=== PATIENT | male | born 1990 | race Caucasian/White ===

== ENCOUNTER 2018-04-03 13:07 | Emergency (ER) | payer SELFPAY ==
--- NOTE | 2018-04-03 13:23 | ER Document Report ---
ED Psych Disorder / Suicide <WILMAR OCAMPO - Last Filed: 04/03/18 15:16> - General Mode of Arrival: Ambulatory Information source: Patient - HPI Patient complains to provider of: Hallucinating Onset: Just prior to arrival Quality of pain: No pain Severity: None Pain Level: Denies Situational problems related to: Work Normal mood: Yes Associated symptoms: Normal affect Similar symptoms previously: No Recently seen / treated by doctor: No <ION CARRILLO - Last Filed: 04/03/18 16:39> - General Chief Complaint: Psych Problem Stated Complaint: PSYCH EVAL Time Seen by Provider: 04/03/18 13:21 Notes: Patient is having visual hallucinations. (ION CARRILLO) - Related Data Allergies/Adverse Reactions: hydrocodone [Hydrocodone] Allergy (Verified 04/03/18 14:00) Past Medical History - Social History Smoking Status: Unknown if Ever Smoked Family History: Reviewed & Not Pertinent Psychiatric Medical History: Reports: Hx Depression - anxiety Past Surgical History: Reports: Hx Rectal Surgery - anal fissure - Immunizations Hx Diphtheria, Pertussis, Tetanus Vaccination: No <ION CARRILLO - Last Filed: 04/03/18 16:39> Review of Systems - Review of Systems Constitutional: No symptoms reported EENT: No symptoms reported Cardiovascular: No symptoms reported Respiratory: No symptoms reported Gastrointestinal: No symptoms reported Genitourinary: No symptoms reported Male Genitourinary: No symptoms reported Musculoskeletal: No symptoms reported Skin: No symptoms reported Hematologic/Lymphatic: No symptoms reported Neurological/Psychological: Hallucinations. denies: Confusion, Homicidal ideation, Suicidal ideation -: Yes All other systems reviewed and negative <ION CARRILLO - Last Filed: 04/03/18 16:39> Physical Exam - General General appearance: Appears well, Alert In distress: None - HEENT Head: Normocephalic, Atraumatic Eyes: Normal Pupils: PERRL - Respiratory Respiratory status: No respiratory distress Chest status: Nontender Breath sounds: Normal Chest palpation: Normal - Cardiovascular Rhythm: Regular Heart sounds: Normal auscultation Murmur: No - Abdominal Inspection: Normal Distension: No distension Bowel sounds: Normal Tenderness: Nontender Organomegaly: No organomegaly - Back Back: Normal, Nontender - Extremities General upper extremity: Normal inspection, Nontender, Normal color, Normal ROM , Normal temperature General lower extremity: Normal inspection, Nontender, Normal color, Normal ROM , Normal temperature, Normal weight bearing. No: Delfino's sign - Neurological Neuro grossly intact: Yes Cognition: Normal Orientation: AAOx4 Gladis Coma Scale Eye Opening: Spontaneous Gladis Coma Scale Verbal: Oriented Gladis Coma Scale Motor: Obeys Commands Gladis Coma Scale Total: 15 Speech: Normal Motor strength normal: LUE, RUE, LLE, RLE Sensory: Normal - Psychological Associated symptoms: Normal affect, Normal mood - Skin Skin Temperature: Warm Skin Moisture: Dry Skin Color: Normal <ION CARRILLO - Last Filed: 04/03/18 16:39> - Vital signs Vitals: Temp Pulse Resp BP Pulse Ox 99.7 F 107 H 20 131/91 H 94 04/03/18 13:54 04/03/18 13:54 04/03/18 13:54 04/03/18 13:54 04/03/18 13:54 Course - Laboratory Result Diagrams: 04/03/18 13:26 04/03/18 13:26 <WILMAR OCAMPO - Last Filed: 04/03/18 15:16> - Laboratory Result Diagrams: 04/03/18 13:26 04/03/18 13:26 - EKG Interpretation by Me EKG shows normal: Sinus rhythm Rate: Tachycardia - 108 When compared to previous EKG there are: Previous EKG unavailable <ION CARRILLO - Last Filed: 04/03/18 16:39> - Vital Signs Vital signs: Temp Pulse Resp BP Pulse Ox 99.7 F 107 H 20 131/91 H 94 04/03/18 13:54 04/03/18 13:54 04/03/18 13:54 04/03/18 13:54 04/03/18 13:54 - Laboratory Laboratory results interpreted by me: 04/03/18 04/03/18 13:26 15:17 Calcium 10.6 H Urine Ketones 20 H Ur Leukocyte Esterase TRACE H Salicylates < 1.0 L Acetaminophen < 10 L - EKG Interpretation by Me Additional EKG results interpreted by me: 04/03/18 13:53 No STEMI (ION CARRILLO) - Transfer of Care Notes: 04/03/18 16:37 Patient was evaluated in the ED by the mental health machine adjuster leader case trim. She provided patient with psychiatric resources and recommend discharging patient home. ( ION CARRILLO) Discharge <WILMAR OCAMPO - Last Filed: 04/03/18 15:16> <ION CARRILLO - Last Filed: 04/03/18 16:39> - Discharge Clinical Impression: Amphetamine abuse, episodic, Visual hallucination Condition: Stable Disposition: HOME, SELF-CARE Instructions: Hallucinations ([facility]) Additional Instructions: You were seen in the ED and evaluated by the Medical and Behavioral Health Teams for visual hallucinations and determined to be appropriate for discharge at this time. You were given a community resource list, to include outpatient providers to assist you upon discharge. Also discussed appropriate coping skills. Hallucinations You seem to be having hallucinations. Hallucinations are seeing, hearing, or feeling things that don't exist. These symptoms commonly occur with drug abuse and schizophrenia. Drugs like PCP, LSD, MDMA, peyote, and "psychedelic mushrooms" can cause frightening hallucinations. Users of methamphetamine or crack cocaine often see and feel bugs crawling on their skin. Patients with schizophrenia may hear voices that no one else can hear. The delusions of schizophrenia often involve conspiracies or relationships that are not real. When symptoms are due to drug abuse, the mental state usually improves as the drug wears off. Someone you trust should be with you until you are better, to protect you and calm your fears. Tranquilizer medicine is helpful at controlling hallucinations, anxiety, and deluded thoughts. Get a proper diet and enough sleep. Most patients do very well when they get proper medical treatment and social support. You should return at once if your symptoms get worse, if you are having suicidal thoughts or thoughts about hurting others, or if you feel that you are in danger. Forms: Return to Work Referrals: LOCAL,NO [NO LOCAL MD] - Follow up as needed
[2018-04-03 13:38] LABS: ABSOLUTE BASOPHILS # (AUTO) 0.1 10^3/uL (0.0-0.2); ABSOLUTE EOSINOPHILS # (AUTO) 0.2 10^3/uL (0.0-0.6); ABSOLUTE LYMPHOCYTES (AUTO) 2.4 10^3/uL (0.5-4.7); ABSOLUTE MONOCYTES (AUTO) 1.1 10^3/uL (0.1-1.4); BASOPHILS % (AUTO) 1.1 % (0-2); EOSINOPHILS % (AUTO) 2.5 % (0-6); HEMATOCRIT 43.5 % (37.9-51.0); LYMPHOCYTES % (AUTO) 24.3 % (13-45); MEAN CORPUSCULAR HEMOGLOBIN 30.6 pg (27.0-33.4); MEAN CORPUSCULAR HGB CONC 34.6 g/dL (32.0-36.0); MEAN CORPUSCULAR VOLUME 89 fl (80-97); MONOCYTES % (AUTO) 11.4 % (3-13); PLATELET COUNT 215 10^3/uL (150-450); RED BLOOD COUNT 4.91 10^6/uL (4.35-5.55); RED CELL DISTRIBUTION WIDTH 13.2 % (11.5-14.0); SEGMENTED NEUTROPHILS % (AUTO) 60.7 % (42-78); TOTAL CELLS COUNTED % (AUTO) 100 %; WHITE BLOOD COUNT 9.8 10^3/uL (4.0-10.5)
[2018-04-03 13:58] LABS: ACETAMINOPHEN < 10 ug/mL (10-30); ALANINE AMINOTRANSFERASE 41 U/L (21-72); ALBUMIN 4.9 g/dL (3.5-5.0); ALCOHOL < 10 mg/dL (NONE DETECTED); ALKALINE PHOSPHATASE 45 U/L (38-126); ANION GAP 14 (5-19); ASPARTATE AMINO TRANSFERASE 44 U/L (17-59); BILIRUBIN,DIRECT 0.3 mg/dL (0.0-0.4); BILIRUBIN,TOTAL 1.3 mg/dL (0.2-1.3); BLOOD UREA NITROGEN 19 mg/dL (7-20); CALCIUM 10.6 mg/dL (8.4-10.2); CARBON DIOXIDE 22 mmol/L (22-30); CHLORIDE 104 mmol/L (98-107); GLUCOSE 108 mg/dL (75-110); POTASSIUM 4.1 mmol/L (3.6-5.0); SALICYLATE < 1.0 mg/dL (2.0-20.0); SODIUM 139.8 mmol/L (137-145); TOTAL PROTEIN 7.9 g/dL (6.3-8.2)
[2018-04-03 15:48] LABS: APPEARANCE,URINE SLIGHTLY-CLOUDY; BILIRUBIN,URINE NEGATIVE (NEGATIVE); COLOR,URINE YELLOW; GLUCOSE, URINE NEGATIVE (NEGATIVE); KETONES,URINE 20 mg/dL (NEGATIVE); LEUKOCYTE ESTERASE,URINE TRACE (NEGATIVE); NITRITE,URINE NEGATIVE (NEGATIVE); PROTEIN,URINE NEGATIVE (NEGATIVE); URINE SPECIFIC GRAVITY 1.014; UROBILINOGEN,URINE NEGATIVE mg/dL (<2.0)
[2018-04-03 16:05] LABS: URINE BARBITURATES SCREEN NEGATIVE; URINE BENZODIAZEPINES SCREEN NEGATIVE; URINE COCAINE SCREEN NEGATIVE; URINE MARIJUANA (THC) SCREEN NEGATIVE; URINE METHADONE SCREEN NEGATIVE; URINE PHENCYCLIDINE SCREEN NEGATIVE
[2018-04-03 16:39] VITALS: BP 121/64
--- NOTE | 2018-04-03 19:48 | EKG REPORT ---
SEVERITY:- OTHERWISE NORMAL ECG - SINUS TACHYCARDIA : Confirmed by: Leti Dallas MD 03-Apr-2018 19:47:23
== END 2018-04-03 16:38 | disposition home or self-care (01) ==
LOC: ER 13:07
DX: F19.10 Other psychoactive substance abuse, uncomplicated (principal); R44.1 Visual hallucinations
CPT/HCPCS: 36415; 80053; 80307; 81001; 84443; 85025; 93005; 93010; 99284

== ENCOUNTER 2018-11-21 20:45 | Emergency (ER) | payer BC ==
[2018-11-22] MEDS ORDERED: IBUPROFEN 800 MG TABLET PO ONE (00:24)
--- NOTE | 2018-11-22 00:24 | ER Document Report ---
ED Medical Screen (RME) - General Chief Complaint: Toothache Stated Complaint: TOOTH ACHE Time Seen by Provider: 11/22/18 00:23 Mode of Arrival: Ambulatory Information source: Patient Notes: 28-year-old male presented to ED for dental pain to tooth #3. He states is been hurting for several weeks. He states that the pain is now to the point that he cannot eat or sleep. He states he usually smokes pack a day but he cannot smoke due to the pain in his tooth. He is alert oriented respirations regular and unlabored speaking in full sentences. Patient states he needs something for his pain until he can get seen by a dentist. I have greeted and performed a rapid initial assessment of this patient. A comprehensive ED assessment and evaluation of the patient, analysis of test results and completion of medical decision making process will be conducted by an additional ED providers. Dictation of this chart was performed using voice recognition software; therefore, there may be some unintended grammatical errors. TRAVEL OUTSIDE OF THE [place] IN LAST 30 DAYS: No - Related Data Allergies/Adverse Reactions: hydrocodone [Hydrocodone] Allergy (Verified 04/03/18 14:00) Past Medical History Renal/ Medical History: Denies: Hx Peritoneal Dialysis Psychiatric Medical History: Reports: Hx Depression - anxiety Past Surgical History: Reports: Hx Rectal Surgery - anal fissure - Immunizations Hx Diphtheria, Pertussis, Tetanus Vaccination: No Physical Exam - Vital signs Vitals: Temp Pulse Resp BP Pulse Ox 97 F L 92 24 H 160/98 H 100 11/21/18 21:20 11/21/18 21:20 11/21/18 21:20 11/21/18 21:20 11/21/18 21:20 Course - Vital Signs Vital signs: Temp Pulse Resp BP Pulse Ox 97 F L 92 24 H 160/98 H 100 11/21/18 21:20 11/21/18 21:20 11/21/18 21:20 11/21/18 21:20 11/21/18 21:20
[2018-11-22] MEDS ORDERED: OXYCODONE-ACETAMINOPHEN 5-325 MG TABLET PO ONE (01:06)
[2018-11-22] MEDS ORDERED: PENICILLIN V POTASSIUM 500 MG TABLET PO ONE (01:06)
--- NOTE | 2018-11-22 01:12 | ER Document Report ---
ED General - General Chief Complaint: Toothache Stated Complaint: TOOTH ACHE Time Seen by Provider: 11/22/18 00:23 Mode of Arrival: Ambulatory TRAVEL OUTSIDE OF THE [place] IN LAST 30 DAYS: No - HPI Notes: Patient is a 28-year-old male that presents to the emergency department for chief complaint of dental pain. Patient states he bit into a hamburger 4 days ago and chipped his right maxillary posterior molar. He has had pain over the site since. He denied any facial swelling. He states the pain is sharp and constant. He does get some relief with cold water and cold compress. Patient has not taken any Tylenol or ibuprofen today. He denies history of dental issues in the past. Past Medical History: Negative Past Surgical History: Negative Social History: Daily tobacco. Denies drug and alcohol use Family History: Reviewed and noncontributory for presenting illness Allergies: Reviewed, see documented allergy list. REVIEW OF SYSTEMS: CONSTITUTIONAL : No fever No chills No diaphoresis No recent illness EENT: No vision changes No congestion No sore throat Dental pain CARDIOVASCULAR: No chest pain No palpitations RESPIRATORY: No shortness of breath No cough No difficulty breathing GASTROINTESTINAL: No abdominal pain No nausea No vomiting No diarrhea GENITOURINARY: No dysuria No hematuria No difficulty urinating MUSCULOSKELETAL: No back pain No leg pain No arm pain SKIN: No rashes No lesions LYMPHATIC: No swollen, enlarged glands. NEUROLOGICAL: No lightheadedness No headache No weakness No paresthesias PSYCHIATRIC: No anxiety No depression PHYSICAL EXAMINATION: Vital signs reviewed, nursing noted reviewed. GENERAL: Well-appearing, well-nourished and in no acute distress. HEAD: Atraumatic, normocephalic. EYES: Eyes appear normal, extraocular movements intact, sclera anicteric, conjunctiva are normal. ENT: No facial bone tenderness, decay and tenderness to percussion of posterior right maxillary molar with exposed dentin but no pulp exposed, mild gingival erythema, nares patent, oropharynx clear without exudates. Moist mucous membranes. NECK: Normal range of motion, supple without lymphadenopathy LUNGS: Breath sounds clear to auscultation bilaterally and equal. No wheezes rales or rhonchi. HEART: Regular rate and rhythm without murmurs ABDOMEN: Soft, nontender, normoactive bowel sounds. No rebound, guarding, or rigidity. No masses appreciated. EXTREMITIES: Nontender, good range of motion, no pitting or edema. NEUROLOGICAL: No focal neurological deficits. Moves all extremities spontaneously Motor and sensory grossly intact on exam. PSYCH: Normal mood, normal affect. SKIN: Warm, Dry, normal turgor, no rashes or lesions noted on exposed skin - Related Data Allergies/Adverse Reactions: hydrocodone [Hydrocodone] Allergy (Verified 04/03/18 14:00) Past Medical History - General Information source: Patient - Social History Smoking Status: Current Every Day Smoker Family History: Reviewed & Not Pertinent Renal/ Medical History: Denies: Hx Peritoneal Dialysis Psychiatric Medical History: Reports: Hx Depression - anxiety Past Surgical History: Reports: Hx Rectal Surgery - anal fissure - Immunizations Hx Diphtheria, Pertussis, Tetanus Vaccination: No Physical Exam - Vital signs Vitals: Temp Pulse Resp BP Pulse Ox 97 F L 92 24 H 160/98 H 100 11/21/18 21:20 11/21/18 21:20 11/21/18 21:20 11/21/18 21:20 11/21/18 21:20 Course - Re-evaluation Re-evalutation: 11/22/18 01:11 Vitals reviewed. Nursing notes reviewed. Patient has a class II fracture of his right posterior maxillary molar. He was given Motrin and Percocet for pain control. Patient has some mild gingival erythema and was started on penicillin VK. He has an appointment in 1 day with a dentist for dental repair or extraction. Patient be started on Pen-VK at home to help with infection. He will take Tylenol and ibuprofen as needed for pain. He will continue with cold compresses and cold water washes since those are also assisting with pain. He was counseled on return precautions and verbalized understanding. - Vital Signs Vital signs: Temp Pulse Resp BP Pulse Ox 97 F L 92 24 H 160/98 H 100 11/21/18 21:20 11/21/18 21:20 11/21/18 21:20 11/21/18 21:20 11/21/18 21:20 Discharge - Discharge Clinical Impression: Dental injury Qualifiers: Encounter type: initial encounter Qualified Code(s): S09.93XA - Unspecified injury of face, initial encounter Condition: Stable Disposition: HOME, SELF-CARE Instructions: Penicillin V K ([facility]), Toothache ([facility]) Additional Instructions: Please return to the emergency department if you have any worsening, or concern of your symptoms. Please return to the emergency department if you develop chest pain, difficulty breathing, severe abdominal pain, or ongoing vomiting. Please follow-up with your primary care physician in 2-3 days and any other recommended physicians. If prescribed, take all medications as directed. If you have any questions or concerns do not hesitate to return the emergency department for evaluation. Take Tylenol and ibuprofen at home as needed for pain Prescriptions: Penicillin V Potassium [Penicillin Vk 500 mg Tablet] 500 mg PO BID #7 tablet Referrals: [facility] [Provider Group] - Follow up tomorrow
[2018-11-22 02:29] VITALS: BP 142/76
== END 2018-11-22 01:35 | disposition home or self-care (01) ==
LOC: ER 20:45
DX: S02.5XXA Fracture of tooth (traumatic), initial encounter for closed fracture (principal); X58.XXXA Exposure to other specified factors, initial encounter; K02.9 Dental caries, unspecified; K08.89 Other specified disorders of teeth and supporting structures; F17.200 Nicotine dependence, unspecified, uncomplicated; Z88.6 Allergy status to analgesic agent
CPT/HCPCS: 99282

== ENCOUNTER 2018-12-11 04:26 | Emergency (ER) | payer BC ==
[2018-12-11] MEDS ORDERED: HALOPERIDOL LACTATE INJ 5 MG/1 ML VIAL ONE (04:32)
[2018-12-11] MEDS ORDERED: HALOPERIDOL LACTATE INJ 5 MG/1 ML VIAL IM ONE (04:32)
[2018-12-11] MEDS ORDERED: ONDANSETRON HCL INJ/PF 4 MG/2 ML SDV IV ONE (04:33)
[2018-12-11] MEDS ORDERED: NORMAL SALINE 1000 ML 1,000 ML IV ONE (04:33)
--- NOTE | 2018-12-11 04:38 | ER Document Report ---
ED General - General Stated Complaint: VOMITING Time Seen by Provider: 12/11/18 04:32 Notes: Patient is a 28-year-old male who presents with complaints of intractable vo miting. He denies abdominal pain. He says all he remembers is that he was dancing in a club and instructional nauseous and sick. He does admit to drinking alcohol tonight. He denies taking any drugs. He has no medical allergies. He currently does not take any medications. Denies any trauma. No other complaints at this time. TRAVEL OUTSIDE OF THE [place] IN LAST 30 DAYS: No - Related Data Allergies/Adverse Reactions: hydrocodone [Hydrocodone] Allergy (Verified 04/03/18 14:00) Past Medical History - Social History Smoking Status: Never Smoker Frequency of alcohol use: None Drug Abuse: None Family History: Reviewed & Not Pertinent Renal/ Medical History: Denies: Hx Peritoneal Dialysis Psychiatric Medical History: Reports: Hx Depression - anxiety Past Surgical History: Reports: Hx Rectal Surgery - anal fissure - Immunizations Hx Diphtheria, Pertussis, Tetanus Vaccination: No Review of Systems - Review of Systems Notes: My Normal Review Basic REVIEW OF SYSTEMS: CONSTITUTIONAL : Denies fever, chills, or sweats. Denies recent illness. EENT: Denies eye, ear, throat, or mouth pain or symptoms. Denies nasal or sinus congestion. CARDIOVASCULAR: Denies chest pain. RESPIRATORY: Denies cough, cold, or chest congestion. Denies shortness of breath, difficulty breathing, or wheezing. GASTROINTESTINAL: Denies abdominal pain. Intractable vomiting GENITOURINARY: Denies difficulty urinating, painful urination, burning, frequency, or blood in urine. MUSCULOSKELETAL: Denies neck or back pain or joint pain or swelling. SKIN: Denies rash or skin lesions. NEUROLOGICAL: Denies altered mental status or loss of consciousness. Denies headache. Denies weakness or paralysis or loss of use of either side. Denies problems with gait or speech. Denies sensory or motor loss. PSYCHIATRIC: Very anxious ALL OTHER SYSTEMS REVIEWED AND NEGATIVE. Physical Exam - Vital signs Vitals: Temp Pulse Resp BP Pulse Ox 98.6 F 106 H 20 119/62 96 12/11/18 04:47 12/11/18 04:47 12/11/18 04:47 12/11/18 04:47 12/11/18 04:47 - Notes Notes: General Appearance: Patient continues to dry heave. He is extremely anxious and hyperventilating and difficult to calm down. Vitals: reviewed, See vital signs table. Head: no swelling or tenderness to the head Eyes: PERRL, EOMI, Conjuctiva clear Mouth: No decreasd moisture Lungs: No wheezing, No rales, No rhonci, No accessory muscle use, good air exchange bilaterally. Heart: Normal rate, Regular rythm, No murmur, no rub Abdomen: Normal BS, soft, No rigidity, No abdominal tenderness, No guarding, no rebound, no abdominal masses, no organomegaly Extremities: strength 5/5 in all extremities, good pulses in all extremities, no swelling or tenderness in the extremities, no edema. Skin: warm, dry, appropriate color, no rash Neuro: anxious affect, responds appropriately to questions. Moves all extremities on his own. symmetric facial movement. Course - Re-evaluation Re-evalutation: 12/11/18 05:17 Patient's vomiting is now under control after receiving the Haldol. He is resting comfortably. He is in no distress at this time. 12/11/18 06:26 On reevaluation patient continues look and feel well. His alcohol level is only 110. He says he remembers noticing that his drink this little different and the glass felt different. Is concerned he may be he had a spike to drink. It is not really clear at this time. Patient's symptoms have resolved. He is receiving IV fluids. Patient will be discharged once IV fluids were completed. He will be sent home with a bottle of Zofran. He has no pain on abdominal exam, his vital signs are stable, he looks well. His chemistry panel is unremarkable. Patient to return to ER if he has worsening current symptoms, intractable vomiting, fevers, any abdominal pain. Patient agrees with plan and will be discharged home when IV fluids are completed. Dictation of this chart was performed using voice recognition software; therefore, there may be some unintended grammatical errors. - Vital Signs Vital signs: Temp Pulse Resp BP Pulse Ox 98.6 F 106 H 20 119/62 96 12/11/18 04:47 12/11/18 04:47 12/11/18 04:47 12/11/18 04:47 12/11/18 04:47 - Laboratory Result Diagrams: 12/11/18 05:20 Laboratory results interpreted by me: 12/11/18 05:20 Chloride 110 H BUN 6 L Alkaline Phosphatase 37 L Discharge - Discharge Clinical Impression: Vomiting Qualifiers: Vomiting type: unspecified Vomiting Intractability: non-intractable Nausea presence: with nausea Qualified Code(s): R11.2 - Nausea with vomiting, unspecified Condition: Good Disposition: HOME, SELF-CARE Additional Instructions: Please avoid any alcohol for the next 24 hours. Please rest over the next 24 hours and drink clear liquids such as water. It iss okay to drink some Gatorade. Please avoid caffeinated beverages. Please avoid carbonated b everages. I have given you a small bottle of Zofran. This is a nausea medication that you can take if you are feeling nauseous. Please take 1 tablet every 4 hours as needed for nausea. Please have a low threshold to return to ER if you have any abdominal pain, fevers, intractable vomiting, or if you feel that you are worsening in any way.
[2018-12-11 05:55] LABS: ALANINE AMINOTRANSFERASE 37 U/L (21-72); ALBUMIN 4.6 g/dL (3.5-5.0); ALCOHOL 115 mg/dL (NONE DETECTED); ALKALINE PHOSPHATASE 37 U/L (38-126); ANION GAP 12 (5-19); ASPARTATE AMINO TRANSFERASE 28 U/L (17-59); BILIRUBIN,DIRECT 0.3 mg/dL (0.0-0.4); BILIRUBIN,TOTAL 0.3 mg/dL (0.2-1.3); BLOOD UREA NITROGEN 6 mg/dL (7-20); CALCIUM 9.2 mg/dL (8.4-10.2); CARBON DIOXIDE 23 mmol/L (22-30); CHLORIDE 110 mmol/L (98-107); GLUCOSE 103 mg/dL (75-110); POTASSIUM 3.7 mmol/L (3.6-5.0); SODIUM 144.5 mmol/L (137-145)
[2018-12-11] MEDS ORDERED: ONDANSETRON ODT 4 MG TAB (6 TAB/ER DISP) PO PRN (06:30)
[2018-12-11 10:06] VITALS: BP 143/76
== END 2018-12-11 10:00 | disposition home or self-care (01) ==
LOC: ER 04:26
DX: R11.2 Nausea with vomiting, unspecified (principal)
CPT/HCPCS: 99284; 96372; 96361; 96374; 36415; 80307; 80053; J1630; J2405; J7030